=== PATIENT | female | born 1960 | race Caucasian/White ===

== ENCOUNTER 2016-09-24 18:49 | Emergency (ER) | payer OTHER ==
[2016-09-24 18:49] VITALS: BMI 26.0
[2016-09-24 19:11] VITALS: BP 126/76; PULSE 75; RESP 16; TEMP 97.9; O2SAT 100
[2016-09-24] MEDS ORDERED: Sodium Chloride 0.9% 1,000 ML IV STA (20:11)
--- NOTE | 2016-09-24 20:14 | ED PDOC ---
HPI: Headache Time Seen by Provider: 09/24/16 20:01 Chief Complaint (Nursing): Headache Chief Complaint (Provider): headache History Per: Patient History/Exam Limitations: no limitations Onset/Duration Of Symptoms: Days (3) Current Symptoms Are (Timing): Still Present Quality: "Pain" Associated Symptoms: Nausea. denies: Photophobia, Blurred Vision, Vomiting, Extremity Weakness Additional History Per: Patient Additional Complaint(s): 55 y/o female presents with b/l temporal headache x 3 days. Associated nausea. Patient notes pain to travel down to shoulders. Denies fever, dizziness, vision changes, extremity numbness/weakness, vomiting, chest pain, shortness of breath, palpitations. 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 Patient also notes pain to right foot 4th digit x 3 weeks after banging it in to her bed. Denies numbness/weakness lower extremities, limitation of movement. Taking Tylenol without improvement. Past Medical History Reviewed: Historical Data, Nursing Documentation, Vital Signs Vital Signs: Last Vital Signs Temp 97.9 F 09/24/16 19:08 Pulse 75 09/24/16 19:08 Resp 16 09/24/16 19:08 BP 126/76 09/24/16 19:08 Pulse Ox 100 09/24/16 19:08 - Medical History PMH: Asthma, HTN Denies: Chronic Kidney Disease - Family History Family History: States: Unknown Family Hx - Immunization History Hx Tetanus Toxoid Vaccination: No Hx Influenza Vaccination: No Hx Pneumococcal Vaccination: No - Home Medications Home Medications: Ambulatory Orders Medication Instructions Recorded Cephalexin [Keflex] 500 mg PO BID #20 cap 04/04/15 Ranitidine HCl [Ranitidine 150] 150 mg PO DAILY 04/04/15 Acetaminophen with Codeine 2 tab PO Q4H PRN #30 tab 06/04/15 [Tylenol with Codeine No. 3 300 mg-30 mg] Azithromycin 1 tab PO DAILY #6 tab 06/04/15 Prednisone 2 tab PO DAILY #10 tab 06/04/15 Ciprofloxacin/Ciprofloxa HCl 500 mg PO BID #14 tab 09/10/15 [Ciprofloxacin] Dicyclomine [Bentyl] 10 mg PO TID PRN #12 cap 09/10/15 Ondansetron [Zofran] 4 mg PO Q6H PRN #10 tab 09/10/15 metroNIDAZOLE [Flagyl] 500 mg PO TID #21 tab 09/10/15 Dicyclomine [Dicyclomine HCl] 10 mg PO TID #10 cap 04/25/16 Loperamide [Loperamide HCl] 2 mg PO Q8 #10 cap 04/25/16 Cyclobenzaprine [Cyclobenzaprine 10 mg PO HS PRN #5 tab 09/24/16 HCl] Ibuprofen [Motrin Tab] 1 tab PO Q6 PRN #20 tab 09/24/16 - Allergies Allergies/Adverse Reactions: Allergies Allergy/AdvReac Type Severity Reaction Status Date / Time No Known Allergies Allergy Verified 09/24/16 19:11 Review of Systems ROS Statement: Except As Marked, All Systems Reviewed And Found Negative Musculoskeletal: Positive for: Foot Pain Neurological: Positive for: Headache Physical Exam - Reviewed Nursing Documentation Reviewed: Yes Vital Signs Reviewed: Yes - Physical Exam Appears: Positive for: Well, Non-toxic, No Acute Distress Head Exam: Positive for: ATRAUMATIC, NORMAL INSPECTION, NORMOCEPHALIC Skin: Positive for: Normal Color Eye Exam: Positive for: Normal appearance ENT: Positive for: Normal ENT Inspection Neck: Positive for: Normal, Painless ROM Cardiovascular/Chest: Positive for: Regular Rate, Rhythm Respiratory: Positive for: Normal Breath Sounds Gastrointestinal/Abdominal: Positive for: Normal Exam Back: Positive for: Normal Inspection, Muscle Spasm (b/l trapezius). Negative for: L CVA Tenderness, R CVA Tenderness, Vertebral Tenderness, Decreased ROM Extremity: Positive for: Normal ROM, Tenderness (PIP, DIP right foot 4th digit with mild ecchymosis, swelling. FROM. Distal NV intact), Capillary Refill (< 2 sec b/l LE). Negative for: Pedal Edema, Calf Tenderness, Deformity Neurologic/Psych: Positive for: Alert, Oriented. Negative for: Motor/Sensory Deficits - Laboratory Results Result Diagrams: 09/24/16 20:56 09/24/16 20:56 - ECG O2 Sat by Pulse Oximetry: 100 - Other Rad xray right foot X-Ray: Viewed By In X-Ray Interpretation: healing fx first phalanx 4th digit right foot - Progress ED Course And Treament: labs, CT head, xray foot, IV fluids, PO tylenol EXAM: CT Head Without Intravenous Contrast CLINICAL HISTORY: 55 years old, female; Pain; Headache; Headache not specified TECHNIQUE: Axial computed tomography images of the head/brain without intravenous contrast. This CT exam was performed using one or more of the following dose reduction techniques: automated exposure control, adjustment of the mA and/or kV according to patient size, and/or use of iterative reconstruction technique. Coronal and sagittal reformatted images were created and reviewed. COMPARISON: No relevant prior studies available. FINDINGS: Brain: Mild volume loss No hemorrhage. Mild white matter disease. No edema. Ventricles: Unremarkable. No ventriculomegaly. Bones/joints: Unremarkable. No acute fracture. Soft tissues: Unremarkable. Sinuses: Unremarkable as visualized. No acute sinusitis. Mastoid air cells: Unremarkable as visualized. No mastoid effusion. IMPRESSION: No intracranial hemorrhage.Please see discussion above. On re-eval, patient notes headache improving; IV toradol ordered 23:30 Patient states headache resolved, resting comfortably. Toe pham taped, surgical shoe given. Patient educated on findings, discharged with rx ibuprofen, flexeril. Educated on ice, elevated for toe fracture. Advised follow up PMD for headache, follow up Podiatry for toe fracture. Return to ED for worsening/concerning symptoms. Disposition - Clinical Impression Clinical Impression: Headache, Toe fracture, Muscle strain - Patient ED Disposition Is Patient to be Admitted: No Counseled Patient/Family Regarding: Studies Performed, Diagnosis, Need For Followup, Rx Given - Disposition Referrals: Margarito Prescott DPM [Staff Provider] - Disposition: Routine/Home Disposition Time: 23:29 Condition: IMPROVED Prescriptions: Cyclobenzaprine [Cyclobenzaprine HCl] 10 mg PO HS PRN #5 tab PRN Reason: Muscle Spasm Ibuprofen [Motrin Tab] 1 tab PO Q6 PRN #20 tab PRN Reason: Pain, Moderate (4-7) Instructions: Toe Fracture (ED), Acute Headache (ED), Muscle Strain (ED) Print Language: AZERI
[2016-09-24 21:01] LABS: BASO # 0.1 K/uL (0.0-0.2); BASO % 0.9 % (0.0-2.0); EOS # 0.5 K/uL (0.0-0.7); EOS % 3.4 % (0.0-4.0); HEMATOCRIT 40.5 % (34.0-47.0); LYMPH # 3.1 K/uL (1.0-4.3); MEAN CELL VOLUME 86.7 fl (81.0-99.0); MEAN CORPUSCULAR HEMOGLOBIN 28.8 pg (27.0-31.0); MEAN CORPUSCULAR HGB CONC 33.2 g/dL (33.0-37.0); MEAN PLATELET VOLUME 8.8 fl (7.2-11.7); MONO # 0.9 K/uL (0.0-0.8); MONO % 6.3 % (0.0-10.0); NEUT # 9.5 K/uL (1.8-7.0); NEUT % 67.4 % (50.0-75.0); RED CELL DISTRIBUTION WIDTH 13.2 % (11.5-14.5); WHITE BLOOD COUNT 14.1 K/uL (4.8-10.8)
[2016-09-24 21:15] LABS: ALB/GLOB RATIO 1.1 (1.0-2.1); ALKALINE PHOSPHATASE 120 U/L (38-126); ALT/SGPT 31 U/L (9-52); AST/SGOT 28 U/L (14-36); BILIRUBIN,TOTAL 0.5 mg/dl (0.2-1.3); BLOOD UREA NITROGEN 11 mg/dl (7-17); CALCIUM 9.7 mg/dL (8.4-10.2); CARBON DIOXIDE 28 mmol/L (22-30); CHLORIDE 102 mmol/L (98-107); GFR AFRICAN-AMERICAN > 60; GLUCOSE,RANDOM 109 mg/dL (65-105); POTASSIUM 4.2 MMOL/L (3.6-5.0); SODIUM 141 mmol/l (132-148); TOTAL PROTEIN 8.2 G/DL (6.3-8.2)
--- NOTE | 2016-09-25 07:16 | RAD ---
PROCEDURE: Right Foot Radiographs. HISTORY: injury, pain 4th digit x 3 weeks COMPARISON: None. FINDINGS: BONES: There is subacute fracture at the proximal phalanx of the 4th digit surrounding with callus formation. JOINTS: Normal. SOFT TISSUES: Normal. OTHER FINDINGS: None. IMPRESSION: Subacute fracture at the proximal phalanx of the 4th toe.
--- NOTE | 2016-09-25 07:55 | CT ---
PROCEDURE: CT HEAD WITHOUT CONTRAST. HISTORY: headache COMPARISON: None available. TECHNIQUE: Axial computed tomography images were obtained through the head/brain without intravenous contrast. Radiation dose: Total exam DLP = 741.9 mGy-cm. This CT exam was performed using one or more of the following dose reduction techniques: Automated exposure control, adjustment of the mA and/or kV according to patient size, and/or use of iterative reconstruction technique. FINDINGS: HEMORRHAGE: No intracranial hemorrhage. BRAIN: No mass effect or edema. No atrophy or chronic microvascular ischemic changes. VENTRICLES: Unremarkable. No hydrocephalus. CALVARIUM: Unremarkable. PARANASAL SINUSES: Unremarkable as visualized. No significant inflammatory changes. MASTOID AIR CELLS: Unremarkable as visualized. No inflammatory changes. OTHER FINDINGS: None. IMPRESSION: No evidence of acute intracranial pathology. Basal ganglia calcification noted bilaterally. Preliminary report was submitted by [facility].
== END 2016-09-25 00:11 | disposition home or self-care (01) ==
LOC: H.ER 18:49
DX: S92.501A Displaced unspecified fracture of right lesser toe(s), initial encounter for closed fracture (principal); W22.03XA Walked into furniture, initial encounter; Y92.003 Bedroom of unspecified non-institutional (private) residence as the place of occurrence of the external cause; X50.0XXA Overexertion from strenuous movement or load, initial encounter; S29.012A Strain of muscle and tendon of back wall of thorax, initial encounter; Y93.89 Activity, other specified; Y99.8 Other external cause status; R51 Headache; I10 Essential (primary) hypertension

== ENCOUNTER 2016-12-22 22:43 | Emergency (ER) | payer BC, OTHER ==
[2016-12-22 22:43] VITALS: BMI 26.0
[2016-12-22 22:58] VITALS: BP 100/59; PULSE 94; RESP 16; TEMP 98; O2SAT 100
--- NOTE | 2016-12-22 23:27 | ED PDOC ---
HPI: General Adult Time Seen by Provider: 12/22/16 23:08 Chief Complaint (Nursing): ENT Problem History Per: Patient Additional Complaint(s): Pt. state for the past 2 weeks she's had nasal congestion without facial pain and increase sneezing. Pt. has not used any medications to help relieve symptoms. Denies facial pain, fever, headache, epistaxis, cough, SOB. Past Medical History Reviewed: Historical Data, Nursing Documentation, Vital Signs Vital Signs: Last Vital Signs Temp 98.0 F 12/22/16 22:55 Pulse 94 H 12/22/16 22:55 Resp 16 12/22/16 22:55 BP 100/59 L 12/22/16 22:55 Pulse Ox 100 12/22/16 22:55 - Medical History PMH: Asthma, HTN Denies: Chronic Kidney Disease - Family History Family History: States: No Known Family Hx - Immunization History Hx Tetanus Toxoid Vaccination: No Hx Influenza Vaccination: No Hx Pneumococcal Vaccination: No - Home Medications Home Medications: Ambulatory Orders Medication Instructions Recorded Cephalexin [Keflex] 500 mg PO BID #20 cap 04/04/15 Ranitidine HCl [Ranitidine 150] 150 mg PO DAILY 04/04/15 Acetaminophen with Codeine 2 tab PO Q4H PRN #30 tab 06/04/15 [Tylenol with Codeine No. 3 300 mg-30 mg] Azithromycin 1 tab PO DAILY #6 tab 06/04/15 Prednisone 2 tab PO DAILY #10 tab 06/04/15 Ciprofloxacin/Ciprofloxa HCl 500 mg PO BID #14 tab 09/10/15 [Ciprofloxacin] Dicyclomine [Bentyl] 10 mg PO TID PRN #12 cap 09/10/15 Ondansetron [Zofran] 4 mg PO Q6H PRN #10 tab 09/10/15 metroNIDAZOLE [Flagyl] 500 mg PO TID #21 tab 09/10/15 Dicyclomine [Dicyclomine HCl] 10 mg PO TID #10 cap 04/25/16 Loperamide [Loperamide HCl] 2 mg PO Q8 #10 cap 04/25/16 Cyclobenzaprine [Cyclobenzaprine 10 mg PO HS PRN #5 tab 09/24/16 HCl] Ibuprofen [Motrin Tab] 1 tab PO Q6 PRN #20 tab 09/24/16 Cetirizine HCl [Zyrtec] 10 mg PO DAILY PRN #15 capsule 12/22/16 Fluticasone Propionate [Flonase] 2 spr NS DAILY PRN #1 bottle 12/22/16 - Allergies Allergies/Adverse Reactions: Allergies Allergy/AdvReac Type Severity Reaction Status Date / Time No Known Allergies Allergy Verified 09/24/16 19:11 Review of Systems ROS Statement: Except As Marked, All Systems Reviewed And Found Negative Physical Exam - Physical Exam Appears: Positive for: Well, Non-toxic, No Acute Distress Skin: Positive for: Normal Color, Warm. Negative for: Rash Eye Exam: Positive for: EOMI, Normal appearance, PERRL ENT: Positive for: TM Is/Are (non-erythematous, non-bulging b/l), Nasal Congestion. Negative for: Sinus Pain/Drainage, Pharyngeal Erythema, Tonsillar Exudate, Tonsillar Swelling Neck: Positive for: Normal, Painless ROM Cardiovascular/Chest: Positive for: Regular Rate, Rhythm Respiratory: Positive for: CNT, Normal Breath Sounds Neurologic/Psych: Positive for: Alert, Oriented - ECG O2 Sat by Pulse Oximetry: 100 Disposition - Clinical Impression Clinical Impression: Hay fever - Patient ED Disposition Is Patient to be Admitted: No - Disposition Disposition: Routine/Home Disposition Time: 23:28 Condition: STABLE Prescriptions: Cetirizine HCl [Zyrtec] 10 mg PO DAILY PRN #15 capsule PRN Reason: congestion Fluticasone Propionate [Flonase] 2 spr NS DAILY PRN #1 bottle PRN Reason: Allergy Symptoms Instructions: Allergic Rhinitis (ED) Forms: [employer] (Uzbek) Print Language: JAPANESE
== END 2016-12-23 00:31 | disposition home or self-care (01) ==
LOC: H.ER 22:43
DX: J30.9 Allergic rhinitis, unspecified (principal); I10 Essential (primary) hypertension

== ENCOUNTER 2017-10-31 09:35 | Emergency (ER) | payer BC ==
[2017-10-31 09:57] VITALS: TEMP 98.2; BMI 24.5
--- NOTE | 2017-10-31 10:08 | ED PDOC ---
Lower Extremity Pain/Injury Time Seen by Provider: 10/31/17 09:52 History Per: Patient Onset/Duration Of Symptoms: Days (1) Current Symptoms Are (Timing): Still Present Severity: Moderate Pain Scale Rating Of: 3 Additional Complaint(s): Twisted left foot and ankle after getting out of car last night. With pain on weight bearing. Past Medical History Vital Signs: Last Vital Signs Temp 98.2 F 10/31/17 09:54 Pulse 86 10/31/17 09:54 Resp 18 10/31/17 09:54 BP 117/67 10/31/17 09:54 Pulse Ox 100 10/31/17 09:54 - Medical History PMH: Asthma, HTN Denies: Chronic Kidney Disease - Family History Family History: States: Unknown Family Hx - Immunization History Hx Tetanus Toxoid Vaccination: No Hx Influenza Vaccination: No Hx Pneumococcal Vaccination: No - Home Medications Home Medications: Ambulatory Orders Medication Instructions Recorded Cephalexin [Keflex] 500 mg PO BID #20 cap 04/04/15 Ranitidine HCl [Ranitidine 150] 150 mg PO DAILY 04/04/15 Acetaminophen with Codeine 2 tab PO Q4H PRN #30 tab 06/04/15 [Tylenol with Codeine No. 3 300 mg-30 mg] Azithromycin 1 tab PO DAILY #6 tab 06/04/15 Prednisone 2 tab PO DAILY #10 tab 06/04/15 Ciprofloxacin/Ciprofloxa HCl 500 mg PO BID #14 tab 09/10/15 [Ciprofloxacin] Dicyclomine [Bentyl] 10 mg PO TID PRN #12 cap 09/10/15 Ondansetron [Zofran] 4 mg PO Q6H PRN #10 tab 09/10/15 metroNIDAZOLE [Flagyl] 500 mg PO TID #21 tab 09/10/15 Dicyclomine [Dicyclomine HCl] 10 mg PO TID #10 cap 04/25/16 Loperamide [Loperamide HCl] 2 mg PO Q8 #10 cap 04/25/16 Cyclobenzaprine [Cyclobenzaprine 10 mg PO HS PRN #5 tab 09/24/16 HCl] Ibuprofen [Motrin Tab] 1 tab PO Q6 PRN #20 tab 09/24/16 Cetirizine HCl [Zyrtec] 10 mg PO DAILY PRN #15 capsule 12/22/16 Fluticasone Propionate [Flonase] 2 spr NS DAILY PRN #1 bottle 12/22/16 traMADol [Ultram] 50 mg PO Q8 #10 tab 10/31/17 - Allergies Allergies/Adverse Reactions: Allergies Allergy/AdvReac Type Severity Reaction Status Date / Time No Known Allergies Allergy Verified 10/31/17 10:05 Review of Systems Constitutional: Negative for: Fever Musculoskeletal: Positive for: Leg Pain, Foot Pain Neurological: Negative for: Weakness, Numbness Physical Exam - Physical Exam Appears: Positive for: Non-toxic, No Acute Distress Extremity: Positive for: Tenderness (Lateral aspect of foot and lateral maleolus. No deformity Mild swelling) Neurologic/Psych: Positive for: Alert, Oriented. Negative for: Motor/Sensory Deficits - ECG O2 Sat by Pulse Oximetry: 100 Disposition - Clinical Impression Clinical Impression: Foot fracture - Patient ED Disposition Is Patient to be Admitted: No Counseled Patient/Family Regarding: Studies Performed, Diagnosis, Need For Followup, Rx Given - Disposition Referrals: Shekhar Veronica DPM [[facility]] - Disposition: Routine/Home Disposition Time: 12:53 Condition: FAIR Prescriptions: traMADol [Ultram] 50 mg PO Q8 #10 tab Instructions: Foot Fracture (DC) Print Language: UZBEK
--- NOTE | 2017-10-31 12:28 | CT ---
PROCEDURE: CT LEFT FOOT WITHOUT CONTRAST HISTORY: FX 2-4 metatarsal COMPARISON: NONE TECHNIQUE: A volumetric CT acquisition through the left foot was performed without intravenous contrast as requested. Sagittal axial coronal reformatted datasets have been provided for interpretation. Contrast Dose: None Radiation dose:Total exam DLP = 284.05 mGy-cm. This CT exam was performed using one or more of the following dose reduction techniques: Automated exposure control, adjustment of the mA and/or kV according to patient size, and/or use of iterative reconstruction technique. FINDINGS: An oblique minimally comminuted articular fractures and adds identified at the base of the 3rd metatarsal bone without subluxation dislocation associated. An oblique fracture is borderline articular at the base of the 4th metatarsal, also nondisplaced. No definitive additional fractures seen throughout the left foot with a small nutrient vessel channel identified at the inferior margins of the proximal metaphysis of the 2nd metatarsal bone, simulating a fracture. Mild local soft tissue edema is appreciated associate with the fracture sites at the dorsal midfoot. Mild degenerative changes are seen at the forefoot midfoot and hindfoot joints diffusely. Subtalar joint is otherwise unremarkable N no subluxation or dislocation is appreciated throughout the left foot. IMPRESSION: Nondisplaced comminuted articular fracture base 3rd metatarsal bone right foot with a nondisplaced oblique fracture through the base of the 4th metatarsal bone, borderline articular. No subluxation or dislocation or additional fracture appreciated.
--- NOTE | 2017-10-31 12:32 | CP.PCM.CON ---
History of Present Illness - History of Present Illness History of Present Illness: 56 y/o female with PMHx of asthma and HTN seen in ED regarding left foot pain. Pt states she twisted the foot when getting out of a car last night. States this morning she was unable to bear weight on the foot without significant pain. States she did not attempt any treatment and came straight here this morning. Denies numbness, tingling or burning in the left LE. Denies F/C/N/V/CP/ SOB Review of Systems - Review of Systems All systems: reviewed and no additional remarkable complaints except (per HPI) Past Patient History - Infectious Disease Hx of Infectious Diseases: None - Past Social History Smoking Status: Never Smoked - CARDIAC Hx Hypertension: Yes - PULMONARY Hx Asthma: Yes - NEUROLOGICAL Hx Neurological Disorder: No - HEENT Hx HEENT Problems: No - RENAL Hx Chronic Kidney Disease: No - ENDOCRINE/METABOLIC Hx Endocrine Disorders: No - HEMATOLOGICAL/ONCOLOGICAL Hx Blood Disorders: No - INTEGUMENTARY Hx Dermatological Problems: No - MUSCULOSKELETAL/RHEUMATOLOGICAL Hx Musculoskeletal Disorders: No - GASTROINTESTINAL Hx Gastrointestinal Disorders: No - GENITOURINARY/GYNECOLOGICAL Hx Genitourinary Disorders: No - PSYCHIATRIC Hx Psychophysiologic Disorder: No Hx Substance Use: No - SURGICAL HISTORY Hx Surgeries: Yes Other/Comment: Liposuction - ANESTHESIA Hx Anesthesia: Yes Hx Anesthesia Reactions: No Meds Home Medications: Home Medication List Medication Instructions Recorded Confirmed Type traMADol [Ultram] 50 mg PO Q8 #10 tab 10/31/17 Rx Allergies/Adverse Reactions: Allergies Allergy/AdvReac Type Severity Reaction Status Date / Time No Known Allergies Allergy Verified 10/31/17 10:05 Physical Exam - Constitutional Appears: Well, Non-toxic, No Acute Distress - Extremities Exam Additional comments: Left lower extremity focused exam: Vasc: DP/PT pulses palpable 2/4. Temperature gradient warm to cool. CFT < 3 sec to all digits. Localized edema noted to dorsum of midfoot Derm: No open lesions, no erythema, no ecchymosis, no clinical signs of infection Neuro: Protective sensation grossly intact Ortho: Tenderness to palpation of dorsal midfoot. Tenderness elicited to dorsum of midfoot upon passive ankle dorsiflexion. Pt able to wiggle toes without difficulty - Neurological Exam Neurological exam: Alert, Oriented x3 - Psychiatric Exam Psychiatric exam: Normal Affect, Normal Mood Results - Vital Signs Recent Vital Signs: Last Vital Signs Temp 98.2 F 10/31/17 09:54 Pulse 86 10/31/17 09:54 Resp 18 10/31/17 09:54 BP 117/67 10/31/17 09:54 Pulse Ox 100 10/31/17 10:07 Assessment & Plan - Assessment and Plan (Free Text) Assessment: 56 y/o female with left foot nondisplaced oblique fractures of 3rd and 4th metatarsal bases as well as possible nondisplaced 3rd and 4th metatarsal neck fractures Plan: Pt seen and evaluated in ED Discussed with attending dr. Veronica Xrays and lower ext CT reviewed, reveal nondisplaced oblique fractures of 3rd and 4th metatarsal bases; possible fx of 3rd and 4th metatarsal necks LLE placed in posterior splint, to be kept clean/dry/intact Pt dispensed crutches and advised to remain NWB Pt referred for follow up to Dr. Veronica's office within 1 week Thank you for allowing us to participate in this patient's care
[2017-10-31 14:03] VITALS: BP 130/72; PULSE 79; RESP 17; O2SAT 98
--- NOTE | 2017-10-31 14:56 | RAD ---
PROCEDURE: Left Ankle Radiographs. HISTORY: trauma COMPARISON: None FINDINGS: BONES: No acute fracture or destructive bony lesion identified. JOINTS: Normal. No osteoarthritis. Ankle mortise maintained. Talar dome intact SOFT TISSUES: Normal. OTHER FINDINGS: None. IMPRESSION: Normal left ankle radiographs.
--- NOTE | 2017-10-31 15:02 | RAD ---
PROCEDURE: Left Foot Radiographs. HISTORY: trauma COMPARISON: None. FINDINGS: BONES: Fractures through the proximal metastases of the 2nd and 3rd metatarsal bones are identified as well as the distal metaphysis of the 3rd and 4th metatarsal bones. Other fractures are not completely excluded but not clearly demonstrated. Please see separate left foot CT examination also performed 10/31/2017. JOINTS: No dislocation or subluxation identified. SOFT TISSUES: Limited dorsal foot edema is appreciated at the forefoot. OTHER FINDINGS: None. IMPRESSION: Multiple fractures are identified involving the 2nd 3rd and 4th metatarsal bones as discussed above, without dislocation or subluxation of local joints. Dorsal soft tissue edema is seen at the forefoot mildly. Please see separate left foot CT without contrast also performed 10/31/2017.
== END 2017-10-31 14:02 | disposition home or self-care (01) ==
LOC: H.ER 09:35
DX: S92.335A Nondisplaced fracture of third metatarsal bone, left foot, initial encounter for closed fracture (principal); S92.325A Nondisplaced fracture of second metatarsal bone, left foot, initial encounter for closed fracture; S92.342A Displaced fracture of fourth metatarsal bone, left foot, initial encounter for closed fracture; X50.1XXA Overexertion from prolonged static or awkward postures, initial encounter

== ENCOUNTER 2018-02-06 11:31 | Emergency (ER) | payer BC ==
[2018-02-06 11:36] VITALS: BMI 25.7
--- NOTE | 2018-02-06 12:43 | ED PDOC ---
HPI: Back Chief Complaint (Provider): Diarrhea, cramping, LBP History Per: Patient History/Exam Limitations: language barrier Onset/Duration Of Symptoms: Days Current Symptoms Are (Timing): Still Present Quality Of Discomfort: Cramping Additional Complaint(s): Pt is a 57 yo F presents with diarrhea, abdominal cramping and LBP. Patient states her diarrhea and cramping started 2 days ago and came on suddenly yesterday she had 10 bouts of yellow non bloody diarrhea, she had milk coffee and bread earlier that day. Patient was recently diagnosed with gastritis and was on a 3 month course of antibiotics. Patient states her B/L mid lumbar back pain started afternoon and the pain is getting worse. She has decreased appetite and only had claudio roxana this morning. Patient denies nausea, vomiting, chest pain, SOB, dysuria or increased urinary frequency PMD: Manfred Clancy - Risk Factors AAA Risk Factors: Pos: Older Than 49 Years Of Age <Yvette Holman - Last Filed: 02/06/18 19:38> <Jimena Carvalho - Last Filed: 02/06/18 23:12> Time Seen by Provider: 02/06/18 11:50 Chief Complaint (Nursing): Back Pain Past Medical History Vital Signs: Last Vital Signs Temp 97.6 F 02/06/18 11:36 Pulse 59 L 02/06/18 11:36 Resp 17 02/06/18 11:36 BP 100/62 02/06/18 11:36 Pulse Ox 96 02/06/18 11:36 - Medical History PMH: Asthma, HTN Denies: Chronic Kidney Disease - Surgical History Other surgeries: Liposuction-2010, Eyelid reduction, Cyst removal from gluteus - Family History Family History: States: Unknown Family Hx, IA (Brother-multiple IA's- 1st age 25 ), Other Other Family History: Gastritis, Lung cancer - Social History Current smoker - smoking cessation education provided: No Alcohol: None Drugs: Denies - Immunization History Hx Tetanus Toxoid Vaccination: No Hx Influenza Vaccination: No Hx Pneumococcal Vaccination: No <Yvette Holman - Last Filed: 02/06/18 19:38> Vital Signs: Last Vital Signs Temp 97.6 F 02/06/18 11:36 Pulse 59 L 02/06/18 11:36 Resp 17 02/06/18 11:36 BP 100/62 02/06/18 11:36 Pulse Ox 96 02/06/18 14:11 <Jimena Carvalho - Last Filed: 02/06/18 23:12> - Home Medications Home Medications: Ambulatory Orders Medication Instructions Recorded Cephalexin [Keflex] 500 mg PO BID #20 cap 04/04/15 Ranitidine HCl [Ranitidine 150] 150 mg PO DAILY 04/04/15 Acetaminophen with Codeine 2 tab PO Q4H PRN #30 tab 06/04/15 [Tylenol with Codeine No. 3 300 mg-30 mg] Azithromycin 1 tab PO DAILY #6 tab 06/04/15 Prednisone 2 tab PO DAILY #10 tab 06/04/15 Ciprofloxacin/Ciprofloxa HCl 500 mg PO BID #14 tab 09/10/15 [Ciprofloxacin] Dicyclomine [Bentyl] 10 mg PO TID PRN #12 cap 09/10/15 Ondansetron [Zofran] 4 mg PO Q6H PRN #10 tab 09/10/15 metroNIDAZOLE [Flagyl] 500 mg PO TID #21 tab 09/10/15 Dicyclomine [Dicyclomine HCl] 10 mg PO TID #10 cap 04/25/16 Loperamide [Loperamide HCl] 2 mg PO Q8 #10 cap 04/25/16 Cyclobenzaprine [Cyclobenzaprine 10 mg PO HS PRN #5 tab 09/24/16 HCl] Ibuprofen [Motrin Tab] 1 tab PO Q6 PRN #20 tab 09/24/16 Cetirizine HCl [Zyrtec] 10 mg PO DAILY PRN #15 capsule 12/22/16 Fluticasone Propionate [Flonase] 2 spr NS DAILY PRN #1 bottle 12/22/16 traMADol [Ultram] 50 mg PO Q8 #10 tab 10/31/17 - Allergies Allergies/Adverse Reactions: Allergies Allergy/AdvReac Type Severity Reaction Status Date / Time No Known Allergies Allergy Verified 10/31/17 10:05 Supervising Attending Note - Supervising Attending Note The Documented history was done by the: Physician Furniture Shampooer The documented physical exam was done by the: Physician Furniture Shampooer The documented procedures were done by the: Physician Furniture Shampooer - Attestation: I have personally seen and examined this patient.: Yes I have fully participated in the care of the patient.: Yes I have reviewed all pertinent clinical information: Yes - Notes: Notes:: Pt initially seen by resident with Dr. Brooks and then handed off to me for follow up of C.diff. C. diff came back negative. Discussed the findings with the patient and her . Pt encouraged to increase oral hydration while diarrhea lasts. Pt advised to take Immodium if she has diarrhea but to stop immodium when stools are becoming more solid due to risk of constipation. Pt with soft abdomen, stable vitals, and tolerating PO. <Jimena Carvalho - Last Filed: 02/06/18 23:12> Review of Systems Gastrointestinal: Positive for: Abdominal Pain, Diarrhea, Rectal Pain Musculoskeletal: Positive for: Back Pain Neurological: Positive for: Headache <Yvette Holman - Last Filed: 02/06/18 19:38> Physical Exam - Physical Exam Appears: Positive for: Non-toxic, No Acute Distress Head Exam: Positive for: ATRAUMATIC, NORMAL INSPECTION, NORMOCEPHALIC Skin: Positive for: Normal Color Eye Exam: Positive for: Normal appearance, EOMI ENT: Positive for: Normal ENT Inspection, Other (Mucous membranes moist) Cardiovascular/Chest: Positive for: Regular Rate, Rhythm Respiratory: Positive for: Normal Breath Sounds Gastrointestinal/Abdominal: Positive for: Bowel Sounds, Soft, Tenderness (mild to palpation of left upper and lower quadrant, no rebound, no guarding) Back: Positive for: Normal Inspection, L CVA Tenderness (L>R), R CVA Tenderness Neurologic/Psych: Positive for: Alert, Oriented <Yvette Holman - Last Filed: 02/06/18 19:38> - Laboratory Results Result Diagrams: 02/06/18 14:20 02/06/18 14:20 - ECG O2 Sat by Pulse Oximetry: 96 - Progress ED Course And Treament: Pt is a 57 yo F presents with diarrhea for 2 days and LBP -CBC w. Diff -CMP -C. Diff stool Toxin A and B- Pending results -Urine Dip -Normal Saline @100mls/hr -Isolation- contact precautions -Dispo pending, Transfer of care, Attending assuming care <Yvette Holmna - Last Filed: 02/06/18 19:38> - Laboratory Results Result Diagrams: 02/06/18 14:20 02/06/18 14:20 - Progress ED Course And Treament: Time: 1500 -- Will continue to follow patient who presents with diarrhea with resident. Labs show elevated white blood cell count. Patient pending C.Diff. Patient will most likely be discharged home with PO medications dependant on C.Diff results. 2118 C-diff is negative. Plan for discharge discussed with Dr. Brooks. Patient to be sent home with prescription for Imodium. Scribe Attestation: Documented by Susan Castillo acting as a scribe for Jimena Carvalho MD. Documented by Stanton Kang acting as a scribe for Jimena Carvalho MD. Provider Scribe Attestation: All medical record entries made by the Scribe were at my direction and personally dictated by me. I have reviewed the chart and agree that the record accurately reflects my personal performance of the medical decision making for this patient. I have also personally directed, reviewed, and agree with the discharge instructions and disposition. <Jimena Carvalho - Last Filed: 02/06/18 23:12> Disposition - Patient ED Disposition Is Patient to be Admitted: Transfer of Care (Dispo pending, Attending assuming care) - Disposition Disposition: Transfer of Care Disposition Time: 19:34 <Yvette Holman - Last Filed: 02/06/18 19:38> <Jimena Carvalho - Last Filed: 02/06/18 23:12> - Clinical Impression Clinical Impression: Low back pain, Diarrhea - Disposition Condition: FAIR Additional Instructions: Take Immodium after each episode of diarrhea. Do not take the Immodium if bowel movements are becoming solid as it will cause constipation. Take Tylenol for back pain. FOllow up with primary medical doctor in one to two weeks. Return to the emergency department if symptoms worsen or if you develop new symptoms. Instructions: Diarrhea and Traveler's Diarrhea, Adult (DC), Low Back Pain (DC) Forms: [employer] (Kiswahili)
[2018-02-06] MEDS ORDERED: Sodium Chloride 0.9% 1,000 ML IV SCH (12:45)
[2018-02-06 14:28] LABS: BASO # 0.1 K/uL (0.0-0.2); BASO % 0.9 % (0.0-2.0); EOS # 0.4 K/uL (0.0-0.7); EOS % 3.6 % (0.0-4.0); HEMOGLOBIN 12.9 g/dL (12.0-16.0); LYMPH # 2.7 K/uL (1.0-4.3); LYMPH % 27.5 % (20.0-40.0); MEAN CELL VOLUME 85.7 fl (81.0-99.0); MEAN CORPUSCULAR HEMOGLOBIN 28.4 pg (27.0-31.0); MEAN CORPUSCULAR HGB CONC 33.2 g/dL (33.0-37.0); MONO # 0.7 K/uL (0.0-0.8); MONO % 7.1 % (0.0-10.0); NEUT % 60.9 % (50.0-75.0); RBC 4.55 Mil/uL (3.80-5.20); RED CELL DISTRIBUTION WIDTH 13.7 % (11.5-14.5); WHITE BLOOD COUNT 9.9 K/uL (4.8-10.8)
[2018-02-06 14:42] LABS: ALB/GLOB RATIO 1.1 (1.0-2.1); ALT/SGPT 40 U/L (9-52); AST/SGOT 27 U/L (14-36); BLOOD UREA NITROGEN 14 mg/dl (7-17); CALCIUM 9.1 mg/dL (8.4-10.2); GFR NON-AFRICAN AMERICAN > 60
[2018-02-06 21:28] VITALS: BP 100/64; PULSE 55; RESP 18; TEMP 97.2; O2SAT 99
== END 2018-02-06 21:25 | disposition home or self-care (01) ==
LOC: H.ER 11:31
DX: M54.5 Low back pain (principal); R19.7 Diarrhea, unspecified
CPT/HCPCS: 80053; 85025; 87230; 96360; 96361; 99283; J7030